=== PATIENT | female | born 1955 | race Caucasian/White ===

== ENCOUNTER 2017-03-26 21:19 | Emergency (ER) | payer OTHER ==
[~2017-03-26] VITALS: Ht 165.1 cm; Wt 56.7 kg
[~2017-03-26 21:19] MED LIST: ALENDRONATE SOD70 MG PO; AMLODIPINE BESYL5 MG PO; ASPIR 8181 M1 PO; ATORVASTATIN CA80 MG PO; CALCIUM 500 +1 EACH PO; CARVEDILOL25 MG PO; ECOTRIN325 MG PO; GLIPIZIDE10 MG PO; GLUCOPHAGE500 MG PO; LEVAQUIN750 MG PO; LISINOPRIL40 MG PO; LOSARTAN-HCTZ1 EAC1 PO; ONE DAILY1 EAC3 PO
[2017-03-26 23:47] VITALS: BP 188/89
== END 2017-03-26 23:48 | disposition home or self-care (01) ==
LOC: EME 21:19
DX: S61.012A Laceration without foreign body of left thumb without damage to nail, initial encounter (principal); W25.XXXA Contact with sharp glass, initial encounter; Z23 Encounter for immunization
CPT/HCPCS: 99281; 99284; S0020

== ENCOUNTER 2017-04-07 09:59 | Emergency (ER) | payer OTHER ==
[~2017-04-07] VITALS: Ht 165.1 cm; Wt 56.4 kg
[2017-04-07 10:40] VITALS: BP 139/80
== END 2017-04-07 10:41 | disposition home or self-care (01) ==
LOC: EME 09:59
DX: S61.012D Laceration without foreign body of left thumb without damage to nail, subsequent encounter (principal); W25.XXXD Contact with sharp glass, subsequent encounter; Z48.02 Encounter for removal of sutures
CPT/HCPCS: 99281; 99283